=== PATIENT | male | born 1950 | race Two or more races ===

== ENCOUNTER 2016-11-25 10:52 | Emergency (ER) | payer OTHER | END 2016-11-25 12:16 | disposition home or self-care (01) | DX: Z76.0 Encounter for issue of repeat prescription (principal); G40.909 Epilepsy, unspecified, not intractable, without status epilepticus; E11.9 Type 2 diabetes mellitus without complications; Z95.2 Presence of prosthetic heart valve; K21.9 Gastro-esophageal reflux disease without esophagitis ==